=== PATIENT | male | born 1985 | race Caucasian/White ===

== ENCOUNTER 2018-03-16 13:50 | Observation (INO) | payer OTHER ==
--- NOTE | 2018-03-16 15:15 | ED ---
Syncope/Near Syncope - HPI Summary HPI Summary: Patient here with syncope of unknown origin at around 1300 today. He reports he was sitting at his desk at work on the computer when he felt a little dizzy. He decided to get up and go to the bathroom to urinate which she did without difficulty. While in the bathroom, he reports he syncopized and when he came to he was on the floor with blood coming from his head. He does not know how this happened but feels he regained consciousness fairly quickly. He is starting to get a headache now but denies change in vision, photophobia, nausea , vomiting, numbness, tingling, weakness. He denies preceding chest pain, shortness of breath, dizziness immediately before the event and or pain. He does have some mild right-sided neck pain since the fall but denies radiating symptoms. No other areas of pain or injury to report. He does admit he's had some left lower quadrant discomfort that started last night and has traveled into today. This pain is worse when he stretches the area and better at rest. To 2 out of 10" annoying" at its worse. He describes it as an intermittent pressure. He did have an urge to urinate with this however had no difficulty with urination nor dysuria, urgency, frequency, hematuria, testicular pain, penile pain/discharged. 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 He did run 5 miles this morning without any fatigue or difficulty and he is a marathon runner in general. Denies any history of syncope, chest pain or cardiac issues. He ate breakfast and lunch without difficulty today. He does report he sweats a lot and has been trying to drink lots of water however he may be a little dehydrated. Denies use of caffeine if he drinks alcohol it's one beer once a week. Denies drinking alcohol last night. In regards to stress, he feels at that a steady level without change however his did report they're getting ready to go on a trip and he has had a lot of tasks on his list of things to do today. - History Of Current Complaint Chief Complaint: EDHeadInjury Time Seen by Provider: 03/16/18 14:07 Hx Obtained From: Patient, Family/Instantizer Operator - PMH/Surg Hx/FS Hx/Imm Hx Previously Healthy: Yes Endocrine/Hematology History: Denies: Hx Anticoagulant Therapy, Hx Blood Disorders, Hx Diabetes, Hx Thyroid Disease, Hx Anemia, Autoimmune Disease Cardiovascular History: Denies: Hx Aneurysm, Hx Congenital Heart Disease, Hx Embolism, Hx Hypotension , Hx Hypertension, Hx Myocardial Infarction, Hx Rheumatic Fever Respiratory History: Denies: Hx Asthma History: Denies: Hx Kidney Infection, Hx Kidney Stones Neurological History: Denies: Hx Headaches, Hx Migraine Infectious Disease History: No Infectious Disease History: Denies: Traveled Outside the [place] in Last 30 Days - Family History Known Family History: Positive: Other - dad - heart arrythmia - well controlled ; no early cardiac in fam - Social History Occupation: Employed Full-time - data research Lives: With Family - Alcohol Use: Weekly - 1 beer per week Hx Substance Use: No Substance Use Type: Reports: None. Denies: Excessive Caffeine Hx Tobacco Use: No Smoking Status (MU): Never Smoked Tobacco Review of Systems Constitutional: Negative Negative: Fever, Chills, Fatigue Eyes: Negative Negative: Photophobia, Blurred Vision, Diplopia ENT: Negative Negative: Epistaxis, Dental Pain, Sore Throat, Ear Ache, Nasal Discharge Cardiovascular: Negative Negative: Palpitations, Chest Pain Respiratory: Negative Negative: Shortness Of Breath, Cough Positive: Abdominal Pain. Negative: Vomiting, Diarrhea, Nausea Positive: see HPI Musculoskeletal: Other - Rt flank pain - muscle? Skin: Negative Positive: Headache - since falling and hitting his head (mild), Syncope. Negative: Weakness, Paresthesia, Numbness, Slurred Speech Psychological: Normal All Other Systems Reviewed And Are Negative: Yes Physical Exam Triage Information Reviewed: Yes Vital Signs On Initial Exam: Initial Vitals Temp Pulse Resp BP Pulse Ox 97.3 F 67 16 119/78 97 03/16/18 14:14 03/16/18 14:14 03/16/18 14:14 03/16/18 14:14 03/16/18 14:14 Vital Signs Reviewed: Yes Appearance: Positive: Well-Appearing, No Pain Distress, Well-Nourished Skin: Positive: Warm, Skin Color Reflects Adequate Perfusion - head bandaged w/ gauze Eyes: Positive: Normal, EOMI, MEGHANA - no photophobia ENT: Positive: Normal ENT inspection, Hearing grossly normal, Pharynx normal - atraumatic, TMs normal - no hemotympanum, Uvula midline. Negative: Nasal drainage - no epistaxis, Trismus Neck: Positive: Supple, Tenderness @ - Rt side Respiratory/Lung Sounds: Positive: Clear to Auscultation, Breath Sounds Present. Negative: Rales, Rhonchi, Wheezes, Unable to speak in full sentences, Fatigue Cardiovascular: Positive: Normal, RRR, S1, S2. Negative: Murmur, Rub, Leg Edema Left, Leg Edema Right Abdomen Description: Positive: No Organomegaly, Soft, Other: - RLQ w/ mild TTP - no rebounding. Negative: CVA Tenderness (R), CVA Tenderness (L), Distended, Guarding Bowel Sounds: Positive: Present Procedures - Laceration/Wound Repair 1 Location: head - posterior scalp Description: Irregular - butterfly shaped w/ a peninsula of skin Anesthesia: Local, 2.0%, Lido, Epi Length, Depth and Shape: 4cm on 1 side, 4cm on other side, 1cm deep - jagged edges; hematoma clots broken up and removed Betadine Prep?: No - antiseptic spray Laceration/Wound Explored: clean, no foreign body removed Closure: Fontana #__ - 7 Suture Type: Chromic - 4-0 Number of Sutures: 5 Sterile Dressing Applied?: Yes - triple anbx ointment + gauze wrap - hemodynamically stable Diagnostics - Vital Signs Vital Signs Temp Pulse Resp BP Pulse Ox 03/16/18 14:14 97.3 F 67 16 119/78 97 - Laboratory Result Diagrams: 03/16/18 15:24 03/16/18 15:24 Lab Statement: Any lab studies that have been ordered have been reviewed, and results considered in the medical decision making process. Course/Dx Course Of Treatment: CT brain: Hematoma and lack without fracture or internal injury - no masses or swelling described. CT cervical spine: No acute findings. Chest x-ray: No acute cardiopulmonary pathology. ECG normal sinus rhythm, 62 bpm, early re-polarization in V2 and V3. Discussed with Dr.'s Naik - this does not appear to be an ST elevation. Patient's first troponin 0.00, 2nd trop 0.01. Lac was repaired. Discussed case w/ Dr. Goldberg who agrees pt should be admitted for observation as his cause of syncope was not identified which means this could happen again. Given the injury the pt sustained, he agrees to admission for observation. - Diagnoses Provider Diagnoses: Syncope, Head injury, Scalp laceration Discharge - Sign-Out/Discharge Documenting (check all that apply): Patient Departure - Discharge Plan Condition: Stable Disposition: ADMITTED TO [facility] - Billing Disposition and Condition Condition: STABLE Disposition: Admitted to [facility]
--- NOTE | 2018-03-16 15:32 | RAD ---
Indication: Syncope. Laceration to the back of the head. Comparison: No relevant prior exams available on the [facility] PACS for comparison. Technique: Noncontrast CT vertex of skull through foramen magnum. Report: Moderate RIGHT para midline posterior parietal region scalp hematoma with associated skin laceration and mild subcutaneous emphysema. Negative for calvarial or skull base fracture. The sulci, ventricles, and basal cisterns are normal for age. Pruett matter white matter differentiation is preserved without evidence for edema. No intra or extra axial hemorrhage is detected. Unremarkable visualized orbital contents. The visualized paranasal sinuses and mastoid air spaces are clear. IMPRESSION: #. No CT evidence for calvarial fracture or traumatic brain injury. #. Moderate RIGHT para midline posterior parietal region scalp hematoma with associated skin laceration and mild subcutaneous emphysema.
[2018-03-16 15:34] LABS: ABS Basophils 0 10^3/ul (0-0.2); ABS Eosinophils 0.1 10^3/ul (0-0.6); ABS Monocytes 0.5 10^3/ul (0-0.8); ABS Neutrophils 9.2 10^3/ul (1.5-7.7); ABS Nucleated RBC 0 10^3/ul; Eosinophil % 0.7 % (0-6); Hematocrit 43 % (42-52); Hemoglobin 14.8 g/dl (14.0-18.0); Lymphocyte % 8.8 % (25-47); Mean Corpuscular HGB Conc 35 g/dl (31-36); Mean Corpuscular Hemoglobin 32 pg (27-31); Mean Corpuscular Volume 91 fL (80-94); Mean Platelet Volume 8.5 um3 (7.4-10.4); Nucleated Red Blood Cells % 0.1; Platelet Count 267 10^3/ul (150-450); Red Blood Count 4.71 10^6/ul (4.00-5.40); Red Cell Distribution Width 13 % (10.5-15); White Blood Count 10.8 10^3/ul (3.5-10.8)
--- NOTE | 2018-03-16 15:34 | RAD ---
Indication: Syncopal episode. Laceration to back of head. Comparison: No relevant prior exams available on the [facility] PACS for comparison. Technique: Upright AP 1515 hours Report: Clear lungs and pleural spaces. Negative for pneumothorax. The heart, pulmonary vasculature, and mediastinal contours are unremarkable. Unremarkable osseous structures and soft tissue contours. IMPRESSION: #. No evidence for acute intrathoracic disease.
--- NOTE | 2018-03-16 15:36 | RAD ---
INDICATION: Syncopal episode with laceration to back of head. COMPARISON: No relevant prior exams available on the [facility] [place] PACS for comparison. TECHNIQUE: Multidetector CT images foramen magnum to lung apices without contrast. Multiplanar reformation. REPORT: Normal vertebral alignment accounting for exam positioning without spondylolisthesis or subluxation at any level. Negative for cervical vertebral body or posterior element fracture. Negative for paravertebral hematoma. IMPRESSION: #. No CT evidence for traumatic cervical spine injury. Negative exam.
[2018-03-16 15:51] LABS: EGFR Non-African American 110.4 (>60); INR 1.02 (0.77-1.02)
[2018-03-16] MEDS ORDERED: Acetaminophen TAB* 325 MG PO ONE (16:08)
[2018-03-16 16:44] LABS: Urine Appearance Clear; Urine Blood Negative (Negative); Urine Color Yellow; Urine Ketones 1+ (Negative); Urine Protein Negative (Negative); Urine Specific Gravity 1.014 (1.010-1.030); Urine Urobilinogen Negative (Negative)
[2018-03-16] MEDS ORDERED: Lidocain 1% EPI 1:100,000 * 30 ML MDV INJ ONE (16:54)
[2018-03-16] MEDS ORDERED: Tetan/Diph/Pertus SYR(Tdap)* 0.5 ML SYR(BOOSTRIX) use SYR IM ONE (16:59)
[2018-03-16] MEDS ORDERED: Lidocaine 1%* 5 ML VIAL ONE (17:04)
[2018-03-16] MEDS ORDERED: Lidocaine 2% EPI 1:200000 MPF*10-20 ML VIAL ONE (17:06)
[2018-03-16] MEDS ORDERED: Bacitracin OINTMENT* 0.5% 0.5 oz TUBE TOPICAL ONE (19:08)
[2018-03-16] MEDS ORDERED: Acetaminophen TAB* 325 MG PO PRN (19:53)
[2018-03-16] MEDS ORDERED: Ondansetron INJ* 2 MG/ML VIAL IV PRN (19:53)
[2018-03-16] MEDS: NS 0.9% 1000 ML* 1,000 ML IV SCH (20:59)
--- NOTE | 2018-03-16 22:36 | HP ---
HISTORY AND PHYSICAL: DATE OF ADMISSION: 03/16/18 PRIMARY CARE PROVIDER: None. ATTENDING PHYSICIAN WHILE IN THE HOSPITAL: Prosper Traore MD * (report dictated by Bernard Ruiz NP). CHIEF COMPLAINT: Syncope. HISTORY OF PRESENT ILLNESS: Mr. Granado is a 32-year-old male patient who was previously healthy, he runs almost on a daily basis. He has no history of alcoholism or recreational drug abuse or smoking. He is coming in today, he was having episode while he was urinating. Next thing he knew he woke up and he was on the floor. Leading up to this though, yesterday he had some right lower quadrant abdominal discomfort. He described it as a pressure. He states it was unrelenting pain. He denied any associated nausea or vomiting. Denied any decrease in appetite or fevers or chills. He states that the symptoms went away and he was feeling better. He denied any diarrhea. He said that he woke up this morning, he felt good, he ran, he ate breakfast, things were looking okay. He did not have anymore discomfort, but his who is a nurse and also a chiropractor, had sent him some links on the internet about appendicitis, so they were concerned about that. Again, he had no more discomfort and he has not had any since he has been here in the ER. He was reading about complications of appendicitis such as perforation, he became lightheaded and nauseated. He was becoming nervous. He states typically medical knowledge and facts can make him nauseous. He had to go to the bathroom and then the next thing he knew he fainted in the middle of urinating. He denied any chest pain prior to or after. Denied having any palpitations or shortness of breath. He came into the ED today. There was concern because of the syncope and we were asked to evaluate for admission. PAST MEDICAL HISTORY: Denied. PAST SURGICAL HISTORY: Denied. HOME MEDICATIONS: Denied. ALLERGIES TO MEDICATIONS: Include no known drug allergies. FAMILY HISTORY: He states his mother is healthy. His father has a history of AFib, but otherwise healthy and is a marathon runner. SOCIAL HISTORY: He does not smoke. He does not drink. He is a physicist. Surrogate decision maker is his . REVIEW OF SYSTEMS: There is no documented fever. Denies having any significant weight change. There is no double vision. He denies having any ear discharge. There is no rhinorrhea. He denies having any sore throat. No thyroid enlargement. Denies having any chest pain. No orthopnea. No nocturnal dyspnea. Denies having any abdominal pain currently; he did admit to some per my HPI. There was no nausea, no vomiting, no dysuria, no frequency, no seizure , no loss of consciousness, no pruritus, and no skin ulcerations. Review of 14 systems was completed, all others are negative. PHYSICAL EXAMINATION GENERAL: At this time, Mr. Granado is a 32-year-old male patient, appears to be well nourished, well developed. He does not appear to be in any acute distress. VITAL SIGNS: Blood pressure 117/79, pulse 70, respirations 16, O2 sat 99%, temperature 97.3. HEENT: Head is atraumatic and normocephalic. Eyes: EOMs are intact. Sclerae anicteric and not pale. Throat: Oral mucosa appears to be moist. No oropharyngeal erythema. NECK: Supple. LUNGS: Clear to auscultation bilaterally. No wheezes, rales or rhonchi. HEART: Sounds S1, S2. He had a regular rate and rhythm. No murmurs, rubs or gallops. ABDOMEN: Soft. It was flat, nontender. Bowel sounds present. EXTREMITIES: Pulses were 2+ throughout. Moving all 4 extremities with 5/5 strength. NEUROLOGICAL: He is awake, alert, and oriented x3. Tongue midline. Survey Instrument Operator were equal. Cranial nerves II through XII were intact. He had no gross focal deficits. SKIN: Grossly intact with the exception he has a laceration noted to the right occipital area. DIAGNOSTIC STUDIES/LAB DATA: WBC 10.8, RBC of 4.71, hemoglobin 14.8, hematocrit of 43, platelet count of 267,000. INR 1.02, PTT of 29.7. Sodium 139 , potassium 4.1, chloride 105, bicarb 26, BUN 12, creatinine 0.81, glucose 95, lactic 0.7, calcium 9.8, mag was 2.0, total bili 0.9, AST 18, ALT 18, alk phos 60. Troponin 0.01, repeat troponin was 0.01. Albumin of 4.8. TSH 1.17. Urine was obtained, it was negative. Multiple imaging here in the ED. Chest x-ray: No evidence for acute intrathoracic disease. Brain CT: No CT evidence for calvarial fracture or traumatic brain injury. Moderate right paramidline posterior parietal scalp hematoma with associated skin laceration and subcutaneous emphysema. Cervical spine CT: No CT evidence for traumatic cervical spine injury. Negative exam. EKG: No previous for comparison. Normal sinus rhythm, rate of 62. He did have T- wave inversions in lead 3 and aVF along with flattening in lead 2. He had an LVH. Old medical records were reviewed. ASSESSMENT AND PLAN: Mr. Granado is a 32-year-old male patient coming into the emergency department today with complaints of a syncopal type episode today but no associated chest pain or shortness of breath or palpitations. We were asked to evaluate for admission. He will be admitted under observation status for: 1. Syncope. At this point, I think this is probably a micturition syncope. I am going to go ahead and place him on telemetry, check orthostatic blood pressures, get one more troponin, EKG and will continue to monitor. 2. EKG changes. Again, he does have some inverted T waves in leads 2, 3, and aVF. I will repeat this in the morning and he has had 2 negative troponins. This could be further worked up in the outpatient setting. He may need an echo at some point, but again he is not having any active cardiac symptoms currently. I would like to again keep him on telemetry and monitor him, but I think the syncope was probably micturitional. 3. Right lower quadrant abdominal pain. Again, he is not having any fevers and no chills. The pain is gone. He had it for 1 day, it seemed to be typical of appendicitis. We will monitor him. Should he have any symptoms that become worse, and his abdominal exam was benign, or if new symptoms could become present, we certainly threshold for imaging, but I do not think we need to do that just at this point. 4. DVT prophylaxis. Place him on SCDs. 5. Code status. Full code. 6. Fluids and nutrition. He can have a regular diet. TIME SPENT: Time spent on the admission 60 minutes, greater than half of the time spent [id number] with the patient obtaining my history and physical, other half of the time spent going over the plan of care with the patient and implementing the plan of care. I did discuss the plan of care with my attending, Dr. Traore, he is in agreement. BERNARD RUIZ NP [id number]/[facility] #: [id number] MAXIMILIAN
[2018-03-17] MEDS: NS 0.9% 1000 ML* 1,000 ML IV SCH (05:12)
[2018-03-17 06:04] LABS: ABS Basophils 0 10^3/ul (0-0.2); ABS Eosinophils 0.1 10^3/ul (0-0.6); ABS Lymphocytes 1.5 10^3/ul (1.0-4.8); ABS Monocytes 0.7 10^3/ul (0-0.8); ABS Neutrophils 5.7 10^3/ul (1.5-7.7); ABS Nucleated RBC 0 10^3/ul; Eosinophil % 1.3 % (0-6); Hematocrit 41 % (42-52); Hemoglobin 14.5 g/dl (14.0-18.0); Lymphocyte % 18.8 % (25-47); Mean Corpuscular HGB Conc 35 g/dl (31-36); Mean Corpuscular Hemoglobin 32 pg (27-31); Mean Corpuscular Volume 90 fL (80-94); Mean Platelet Volume 8.3 um3 (7.4-10.4); Nucleated Red Blood Cells % 0; Platelet Count 228 10^3/ul (150-450); Red Blood Count 4.56 10^6/ul (4.00-5.40); Red Cell Distribution Width 13 % (10.5-15); White Blood Count 8.1 10^3/ul (3.5-10.8)
[2018-03-17 06:13] LABS: INR 1.1 (0.77-1.02)
[2018-03-17 06:18] LABS: EGFR Non-African American 150.3 (>60)
[2018-03-17] MEDS ORDERED: Bacitracin OINTMENT* 0.5% 0.5 oz TUBE TOPICAL SCH (12:00)
[2018-03-17 12:49] VITALS: BP 115/72
--- NOTE | 2018-03-17 21:09 | DS ---
DISCHARGE SUMMARY: DATE OF ADMISSION: 03/16/18 DATE OF DISCHARGE: 03/17/18 PRINCIPAL DISCHARGE DIAGNOSIS: Micturition syncope. HOSPITAL COURSE: 1. Mr. Granado presented to the emergency department after an episode of syncope. He reported having had right lower quadrant abdominal pain 2 days prior to the syncope. He had been at work when he was complaining of this and his , who is a nurse, had been sending him information about appendiciti s and he got anxious, he started to walk outside to get some fresh air because he was so anxious and stopped in the bathroom on his way. He was urinating and the next thing he remembers is waking up on the floor. He does not know for how long he was unconscious and he sustained a laceration to his oc ciput due to the fall. Prior to syncope, he had no shortness of breath, chest pain, palpitations, li ghtheadedness or dizziness, and only had one other episode of syncope in his life when he was in 7th grade and got hit in the head with something during the sport. Mr. Granado was taken to the emergency department and a laboratory workup was unremarkable. Troponins were negative x3. [facility] and was monitored on telemetry overnight. He had no events on telemetry. I personally reviewed the telemetry with the telecommunications field technician and the morning following admission, he was feel ing very well, had no palpitations, no lightheadedness, dizziness, chest pain, or shortness of breath . His workup was remarkable only for an EKG with T-wave inversions in leads III and aVF and he has n o murmur on exam. I explained all of these findings to him and his and recommended that he stay for a transthoracic echocardiogram to rule out an outlet obstruction or hypertrophy, but he and his decided that they would not want to stay for that test and opted to leave today instead. I delon mmend therefore very close followup that includes an echocardiogram and I also recommended that he no t exercise until he has followed up and received an echocardiogram. I had a lengthy discussion with them on a cardiac workup being warranted in this case especially in a young, healthy, active male and they agree that it is important and they will certainly follow up with me outpatient in the [facility] this week. 2. Occipital laceration. This was stapled in the emergency department. He is to follow up in the [facility] and have the tyson removed next week. PHYSICAL EXAM: At the time of discharge, temperature 98.0, heart rate 61, respiratory rate 17, pulse ox 99% on room air, blood pressure 115/72. General: Alert, well-appearing, young man, walking aroun d his room, in no distress. HEENT: Pupils are 2 mm bilaterally and reactive to light. There is no n ystagmus. Oral mucosa is moist. A laceration is noted on his occiput that is stapled and dressed. N jaqueline: No JVP. No cervical adenopathy. Chest: He is in a regular rate and rhythm. He has no murmur s throughout, no rub, and no gallop. PMI is nondisplaced. Lungs are clear bilaterally. Abdomen is s oft, nontender, nondistended. Strength is 5/5 throughout. DISPOSITION: Mr. Granado is being discharged to home today with strict instruction to follow up for a n outpatient echocardiogram as he has declined staying to get this as an inpatient as I have recommen ded. He is to return to the emergency department with any further episodes of chest pain, shortness of breath, lightheadedness, syncope, or other unusual symptoms. I have explained all of this to both him and his and they expressed understanding. I have also expressed the concern for a subdural hematoma presentation after head trauma and emergency evaluation should be pursued should he develop headache, change in mental status, change in vision, or any other neurological complaints. [id number]/[facility] #: [id number]
== END 2018-03-17 14:35 | disposition home or self-care (01) ==
LOC: ED 13:50 → MEDTELE 19:50
PROVIDERS: ADMIT Hospitalist; ATTEND Internal Medicine
DX: R55 Syncope and collapse (principal); R39.198 Other difficulties with micturition; S01.01XA Laceration without foreign body of scalp, initial encounter; W18.30XA Fall on same level, unspecified, initial encounter; R10.31 Right lower quadrant pain; R94.31 Abnormal electrocardiogram [ECG] [EKG]; Z23 Encounter for immunization; Z79.899 Other long term (current) drug therapy
CPT/HCPCS: 12002; 36415; 70450; 71045; 72125; 80048; 80053; 81003; 83605; 83735; 84443; 84484; 85025; 85610; 85730; 90471; 90715; 93005; 99282; A9270-GY; G0378